=== PATIENT | male | born 1990 | race Hispanic/Latino ===

== ENCOUNTER 2018-02-15 19:19 | Inpatient (IN) | payer SELFPAY ==
[~2018-02-15 19:19] MED LIST: ISOVUE-370 76%-LOCM 1 ML ONE
[2018-02-15] MEDS ORDERED: Ondansetron ODT 4 MG TAB ONE (19:29)
[2018-02-15] MEDS ORDERED: Fentanyl 100 MCG/2 ML VIAL ONE (19:30)
[2018-02-15] MEDS ORDERED: Ondansetron HCl/PF 4 MG/2 ML Vial ONE (19:33)
[2018-02-15 19:47] LABS: #Basophils 0.1 thou/uL (0.0-0.2); #Monocytes 0.6 thou/uL (0.11-0.59); #Neutrophils 4.8 thou/uL (1.40-6.50); %Basophils 0.7 % (0.0-1.0); %Eosinophils 0.5 % (0.0-10.0); %Monocytes 8.4 % (0.0-10.0); %Neutrophils 64.4 % (42.0-75.0); Hemoglobin 14.7 g/dL (14.0-18.0); Mean Corpuscular HGB CONC 34.5 g/dL (32.0-36.0); Mean Platelet Volume 7.7 fL (7.4-10.4); Platelet Count 180 thou/uL (130-400); RBC Distribution Width 11.9 % (11.5-14.5); White Blood Cell (WBC) Count 7.5 thou/uL (4.8-10.8)
[2018-02-15 20:11] LABS: ALT (SGPT) 36 U/L (8-55); AST (SGOT) 32 U/L (5-34); Albumin 4.8 g/dL (3.5-5.0); Alcohol Less than 10 mg/dL (Less than 10); Alkaline Phosphatase 100 U/L (40-150); Anion Gap 13 mmol/L (10-20); BUN (Urea Nitrogen) 18 mg/dL (8.9-20.6); Bilirubin, Total 0.6 mg/dL (0.2-1.2); Calc. Creatinine Clearance 0 mL/min (70-130); Calcium 9.3 mg/dL (7.8-10.44); Carbon Dioxide 23 mmol/L (22-29); Chloride 105 mmol/L (98-107); Estimated GFR-MDRD 78; Globulin 3.4 g/dL (2.4-3.5); Glucose 114 mg/dL (70-105); Potassium 3.6 mmol/L (3.5-5.1); Protein, Total 8.2 g/dL (6.0-8.3); Sodium 137 mmol/L (136-145)
--- NOTE | 2018-02-15 20:29 | CT ---
CERVICAL SPINE CT WITHOUT CONTRAST: 02/15/18 COMPARISON: None. HISTORY: Fall, trauma, pain. TECHNIQUE: Serial axial CT imaging at 2.5 mm intervals from skull base through lung apices without contrast. Co liya and sagittal reformatted imaging obtained. FINDINGS: The occipital condyles, dens, C1-2 articulation, craniocervical junction and cervicothoracic junctio n appear intact. Cervical vertebral body height and alignment is maintained. No prevertebral soft tissue swelling. Imaged lung apices are unremarkable. No displaced fracture or evidence of dislocation is seen involvi ng the cervical spine. IMPRESSION: No cervical spine fracture or dislocation. Results called to Dr. Hull, 7:55 p.m., 02/15/18. Code CR POS: [email or web address]
--- NOTE | 2018-02-15 20:53 | CT ---
CT OF THE HEAD WITHOUT CONTRAST: 02/15/18 COMPARISON: None. HISTORY: Fall from a house. TECHNIQUE: Serial axial CT imaging at 5 mm intervals from vertex through skull base without contrast. FINDINGS: There is prominent periorbital soft tissue swelling on the right. There is a comminuted mildly displa alexa fracture involving the posterior wall of the right maxillary sinus. There is a comminuted and dis placed fracture of the right zygomatic arch. There is an obliquely oriented fracture involving the la teral orbital wall on the right. There is gas within the superior aspect of the orbit on the right. There is a probable right orbital floor fracture. There is no intracranial hemorrhage, midline shift, or mass effect seen. IMPRESSION: Extensive right sided facial fractures, incompletely assessed. Recommend CT examination of the facial bones. Results called to Dr. Hull at approximately 7:55 p.m., 02/15/18. Code CR POS: [facility]
[2018-02-15] MEDS ORDERED: Lidocaine 1% (PF) 30 ML VIAL ONE (20:54)
--- NOTE | 2018-02-15 21:27 | RAD ---
TWO VIEWS OF THE RIGHT WRIST: 02/15/18 COMPARISON: None. HISTORY: Fall, trauma, pain. FINDINGS: There is an obliquely oriented fracture through the mid body of the scaphoid bone. There is a comminu heidi distal right radial fracture with prominent dorsal and proximal displacement. The ulnar styloid is not visualized on the frontal film suggesting either old fracture or displaced acute fracture. IMPRESSION: Comminuted displaced distal right radial fracture with prominent dorsal and proximal displacement and marked comminution. There is an associated obliquely oriented fracture through the mid body of the r ight scaphoid. POS: [id number]
--- NOTE | 2018-02-15 21:45 | CT ---
CT FACIAL BONES 02/15/18 COMPARISON: None. HISTORY: Fall, trauma, pain. TECHNIQUE: Serial axial CT imaging is obtained at 2.5 mm intervals through the facial bones without contrast. Co liya and sagittal reformatted imaging obtained. FINDINGS: There is prominent soft tissue swelling in the right periorbital region. The frontal sinuses appear well aerated. The sphenoid sinuses and ethmoid air cells are well aerated as well. The left maxillary sinus is well aerated. There is partial opacification of the maxillary sinus on the right, including hemorrhage within the r ight maxillary sinus. There is a comminuted and posteriorly displaced fracture involving the anterior wall of the maxillary sinus on the right. There is a comminuted and displaced fracture involving the posterior wall and inferior aspect of the right maxillary sinus as well. There is a comminuted and d isplaced fracture of the right zygomatic arch and there is an obliquely oriented comminuted fracture involving the lateral aspect of the orbital wall on the right. There is a nondisplaced fracture involving the orbital floor on the right. The medial orbital wall on the right appears intact. The orbital floor and medial orbital wall on the left appears intact as does the left zygomatic arch . The pterygoid plates are intact bilaterally. Neither temporomandibular joint is dislocated. No evidence for a mandibular fracture is seen. Foci of gas are noted within the superior and lateral aspect of the orbit on the right anteriorly which may be associated with the fracture of the maxillary sinus on the right and/or could be related to associ ated laceration. IMPRESSION: Fractures of the right orbital floor, zygomatic arch, lateral orbital wall, anterior wall maxillary s inus and posterior wall maxillary sinus. There is associated soft tissue swelling with subcutaneous/p eriorbital gas as above. Results called to Dr. Hull at 7:59 p.m, 02/15/18. Code CR POS: [id number]
--- NOTE | 2018-02-15 21:52 | CT ---
CT OF THE CHEST CT OF THE ABDOMEN CT OF THE PELVIS CT OF THE THORACIC SPINE CT OF THE LUMBAR SPINE 02/15/18 COMPARISON: None. HISTORY: Fall, trauma, pain. TECHNIQUE: Serial axial CT imaging at 5 mm intervals from the thoracic inlet through the pubic symphysis with IV contrast. Coronal and sagittal reformatted imaging obtained. FINDINGS: The axillary, mediastinal, and hilar regions demonstrate no lymphadenopathy. There is no pleural, per icardial or mediastinal fluid. The vascular structures of the chest appear patent. There is no pneumo thorax seen on either side. Lung parenchyma demonstrates no acute findings. No endobronchial lesion is evident. The extraspinal osseous structures of the chest demonstrate no acute findings. There is no free intraperitoneal air or fluid seen. The liver, spleen, gallbladder, adrenal glands, kidneys and pancreas appear unremarkable. There is no evidence for bowel inflammatory change or obstruction. Vascular structures of abdomen/pel vis appear patent. No lymphadenopathy is seen in the abdomen or pelvis. The extraspinal osseous structures of the abdomen/pelvis demonstrate a subacute/chronic fracture invo lving the anterior aspect of the acetabulum on the right and the right inferior pubic ramus. There is no widening of the pubic symphysis or the sacroiliac joints. Neither hip appears dislocated. THORACIC SPINE: No fracture or dislocation. Thoracic vertebral body height and alignment appears normal. LUMBAR SPINE: No acute fracture or evidence of dislocation. Vertebral body height and alignment appears within norm al limits. IMPRESSION: No acute findings. Please see above discussion. Results called to Dr. Hull at 8:05 p.m., 02/15/18. Code CR POS: [facility]
[2018-02-15] MEDS ORDERED: Ondansetron ODT 4 MG TAB SL PRN (23:11)
[2018-02-15] MEDS ORDERED: Sodium Chloride 0.9% 1,000 ML IV SCH (23:11)
[2018-02-15] MEDS ORDERED: Ondansetron HCl/PF 4 MG/2 ML Vial IVP PRN ×2 (23:11→23:16)
[2018-02-15] MEDS ORDERED: hydrALAZINE 20 MG/ML VIAL SLOW IVP PRN (23:16)
[2018-02-15] MEDS ORDERED: Dextrose 5% in Water 1,000 ML IV PRN (23:16)
[2018-02-15] MEDS ORDERED: Dextrose 50% Abboject 50 ML SYRINGE SLOW IVP PRN (23:16)
[2018-02-15] MEDS ORDERED: Ondansetron ODT 4 MG TAB PO PRN (23:16)
[2018-02-15] MEDS: Acetaminophen 1,000 MG in Premix Bag 1 BAG IVPB SCH (23:44)
[2018-02-15] MEDS: Ketorolac Tromethamine 30 MG/ML VIAL IVP SCH (23:44)
[2018-02-15] MEDS: Sodium Chloride 0.9% 1,000 ML IV SCH (23:44)
[2018-02-16 00:16] VITALS: BMI 25.3
--- NOTE | 2018-02-16 03:12 | CON ---
DATE OF CONSULTATION: 02/15/2018 CHIEF COMPLAINT: Wrist pain. HISTORY OF PRESENT ILLNESS: Mr. Boykin is a 27-year-old male, who was working today. He works in a construction site. He fell from a ladder up high in the air. He landed hard on his right outstret ched arm and he struck his face. He has been found to have facial fractures as well as a displaced r adius and scaphoid fracture of the right wrist. He has been given pain medication. He has had a tra diana workup and imaging studies. Orthopedics was consulted regarding his right wrist. He is currentl y resting comfortably in an air splint. The patient is interviewed through a creative services specialist. PAST MEDICAL HISTORY: He denies active medical problems. PAST SURGICAL HISTORY: No previous surgeries. ALLERGIES: No known drug allergies. FAMILY MEDICAL HISTORY: Noncontributory. REVIEW OF SYSTEMS: Positive for right wrist and hand pain as well as facial trauma and pain. Negati ve otherwise 10-point review of systems. FAMILY MEDICAL HISTORY: Noncontributory. IMAGES: X-rays of the right wrist demonstrate a completely displaced distal radius fracture. There is comminution. The patient also has a transverse scaphoid fracture. PHYSICAL EXAMINATION: VITAL SIGNS: Stable. He is afebrile. GENERAL: He is alert, sitting upright, in no apparent distress. HEENT: Obvious facial trauma with swollen and ecchymotic eyes and forehead. There is laceration ove r the forehead. NECK: Cervical collar is in place. RESPIRATORY: Breathing comfortably. ABDOMEN: Soft, nontender, nondistended. CARDIOVASCULAR: Pulses palpable and regular. MUSCULOSKELETAL: The patient's right wrist has obvious extension deformity at the distal radius. Th ere is swelling and ecchymosis. He is able to gently flex and extend the fingers. Two second capill quinn refill. No open fracture or laceration. IMPRESSION: Right displaced distal radius fracture and scaphoid fracture. PLAN: Tonight, we will reduce the patient's wrist under hematoma block and sedation. He will be spl inted. He will be admitted to the hospital by the Trauma Service. He will need to go to the operati ng room tomorrow for open reduction and internal fixation of the radius and the scaphoid bone. We wi ll plan for this tomorrow to realign the radius into an anatomic position and provide compression of the scaphoid bone to allow healing. Risks have been reviewed with him. He wants to proceed. He sundeep l have adequate pain control and complete trauma workup. He will have DVT prophylaxis. Facial fract ures will be treated at a later time by the appropriate service.
[2018-02-16 05:11] LABS: #Lymphocytes 1.2 thou/uL (1.20-3.40); #Monocytes 0.8 thou/uL (0.11-0.59); #Neutrophils 5.8 thou/uL (1.40-6.50); %Basophils 0.1 % (0.0-1.0); %Eosinophils 0.1 % (0.0-10.0); %Lymphocytes 15.6 % (21.0-51.0); %Monocytes 10.3 % (0.0-10.0); %Neutrophils 73.9 % (42.0-75.0); Mean Corpuscular HGB CONC 34.8 g/dL (32.0-36.0); Mean Corpuscular Hemoglobin 30.5 pg (27.0-31.0); Mean Corpuscular Volume 87.6 fL (78.0-98.0); Mean Platelet Volume 7.8 fL (7.4-10.4); Platelet Count 153 thou/uL (130-400); Red Blood Cell (RBC) Count 4.27 mill/uL (4.70-6.10); White Blood Cell (WBC) Count 7.8 thou/uL (4.8-10.8)
--- NOTE | 2018-02-16 05:14 | HP ---
DATE OF ADMISSION: 02/15/2018 REQUESTING SURGEON: Dr. Mukul Hull. ATTENDING SURGEON: Dr. Tanner. CONSULTATIONS: Orthopedics, Dr. Bolaños. 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 He was brought to the emergency room by ground EMS. He underwent evaluation and examination and was noted to have right-sided facial fractures, facial contusion, and a displaced right distal radius and ulnar fracture and right scaphoid fracture. At which time, we were asked to evaluate the patient and obtain Orthopedic consultation. The patient reportedly did have a brief pe riod of loss of consciousness. 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 ALLERGIES: None. CURRENT MEDICATIONS: None. PAST MEDICAL HISTORY: None. PAST SURGICAL HISTORY: None. SOCIAL HISTORY: Patient denies drug, tobacco, or alcohol use and is employed as a [employer]. He is and lives with his family. FAMILY MEDICAL HISTORY: Diabetes. REVIEW OF SYSTEMS: Ten-point review of systems is negative, unless otherwise stated. PHYSICAL EXAMINATION: VITAL SIGNS: Blood pressure 137/83, heart rate 89, respirations 20, oxygen saturation 94% on room ai r, temperature is 98.5. GENERAL: Patient is resting comfortably in bed. He is alert and oriented x3. Vibha coma scale is 14. He is -1 for eye opening. HEENT: Head is normocephalic, atraumatic. Face, right periorbital ecchymosis and swelling. Eyes ar e extraocular motion intact. PERRLA bilaterally. Ears are atraumatic without discharge. Nose are a traumatic without discharge. Oropharynx is clear. NECK: Nontender. Trachea is midline. No JVD. CHEST: Clear to auscultation with good inspiratory and expiratory effort. HEART: Regular rate and rhythm. ABDOMEN: Soft, flat, nontender with active bowel sounds. Pelvis is stable. Bilateral lower extremi ties are neurovascularly intact. Left upper extremity is neurovascularly intact. Right upper extrem ity shows a significant silver-fork deformity, but is neurovascularly intact. BACK: Atraumatic and nontender. LABORATORY RESULTS: White blood cell count 7.5, hemoglobin 14.7, hematocrit 42.7, platelets 180,000. Sodium 137, potassium 3.6, chloride 105, CO2 of 23, BUN 18, creatinine 1.11, glucose 114. LFTs are unremarkable. Blood alcohol is less than 10. RADIOGRAPHIC REPORTS: CT of the brain without contrast shows no intracranial hemorrhage or calvarial fractures. The brain CT does show extensive right-sided facial fractures that are incompletely asse ssed on this exam. CT of the face without contrast shows fractures of the right orbital floor, zygom atic arch, lateral orbital wall, anterior wall of the maxillary sinus, and posterior wall of the maxi llary sinus with associated soft tissue swelling and subcutaneous/periorbital gas. CT of the C-spine without contrast shows no cervical spine fracture or dislocation. CT of the chest, abdomen, and pel vis without contrast shows no acute findings. Two views of the right wrist showed comminuted displac ed distal radius fracture with prominent dorsal and proximal displacement and marked comminution. Th ere is also associated obliquely oriented fracture through the mid body of the right scaphoid. ASSESSMENT AND PLAN: 1. Status post fall from roof. 2. Concussion. 3. Right-sided facial fractures. 4. Right distal radius and scaphoid fracture. 5. Contusions. Plan will be to admit the patient to the surgical floor. He will be made n.p.o. after midnight. Dr. Bolaños evaluated the patient in the emergency department and was able to do a closed reduction at bedside. The patient was also placed in a sugar-tong splint. After discussion with Dr. Miller of [facility], the patient will be seen as an outpatient in 1 week. He recommends sinus precautions, specifica lly no blowing his nose and be placed on amoxicillin for 5 days. Patient will have pain control, pul monary toilet, gastritis, and mechanical DVT prophylaxis. The evaluation, examination, laboratory an d radiographic findings were discussed with Dr. Tanner after this dictation.
[2018-02-16 05:37] LABS: Anion Gap 9 mmol/L (10-20); BUN (Urea Nitrogen) 17 mg/dL (8.9-20.6); Calc. Creatinine Clearance 132 mL/min (70-130); Calcium 8.7 mg/dL (7.8-10.44); Carbon Dioxide 26 mmol/L (22-29); Chloride 106 mmol/L (98-107); Estimated GFR-MDRD Greater than 90; Glucose 104 mg/dL (70-105); Potassium 3.8 mmol/L (3.5-5.1); Sodium 137 mmol/L (136-145)
[2018-02-16] MEDS: Acetaminophen 1,000 MG in Premix Bag 1 BAG IVPB SCH ×2 (06:36→15:03)
[2018-02-16] MEDS: Sodium Chloride 0.9% 1,000 ML IV SCH ×2 (06:37→17:27)
[2018-02-16] MEDS: Ketorolac Tromethamine 30 MG/ML VIAL IVP SCH ×2 (06:37→15:04)
--- NOTE | 2018-02-16 09:00 | RAD ---
2 VIEWS RIGHT WRIST: Date: 02/15/18 COMPARISON: 02/15/18. HISTORY: Reduction of distal radius fracture. FINDINGS/IMPRESSION: Two views of the right wrist show an overlying splint, which obscures fine bony and soft tissue detai l. There is a comminuted fracture of the distal radial metaphysis with an associated ulnar styloid fr acture. The previously seen fracture of the scaphoid is not appreciated on these limited views. IMPRESSION: 1. Reduction of distal radius fracture. 2. Nonvisualization of the previously seen scaphoid fracture. POS: [facility]
[2018-02-16] MEDS ORDERED: Fentanyl 100 MCG/2 ML VIAL ONE ×2 (10:08→11:05)
[2018-02-16] MEDS ORDERED: Midazolam HCl 2 mg/2 ml Vial ONE ×2 (10:08→11:05)
[2018-02-16] MEDS ORDERED: CEFAZOLIN/Water 2 GM/20 ML SYRINGE ONE (11:00)
[2018-02-16] MEDS ORDERED: Dexamethasone 4 mg/ml Vial ONE (11:06)
[2018-02-16] MEDS ORDERED: CEFAZOLIN/Water 2 GM/20 ML SYRINGE SLOW IVP SCH (12:00)
[2018-02-16] MEDS ORDERED: Morphine Sulfate 2 MG/ML SYRINGE SLOW IVP PRN (12:49)
[2018-02-16] MEDS ORDERED: Promethazine HCl 25 MG/ML VIAL SLOW IVP PRN (12:49)
[2018-02-16] MEDS ORDERED: Meperidine HCl/PF 25 MG/ML VIAL SLOW IVP PRN (12:49)
[2018-02-16] MEDS ORDERED: Bupivacaine HCl 0.5%/Epinephrine 1:200,000/PF 30 ml Vial ONE (13:24)
[2018-02-16] MEDS ORDERED: Ondansetron HCl/PF 4 MG/2 ML Vial ONE (14:31)
[2018-02-16] MEDS ORDERED: Dexamethasone 20 MG/5 ML VIAL ONE (14:31)
[2018-02-16] MEDS ORDERED: PHENYLEPHRINE-NS 100 MCG/ML 10 ML SYRINGE ONE (14:31)
[2018-02-16] MEDS ORDERED: Lidocaine 1% PF 5 ML VIAL ONE (14:31)
[2018-02-16] MEDS ORDERED: ePHEDrine/0.9% NaCl/PF SYRINGE 50 mg/10 ml ONE (14:31)
[2018-02-16] MEDS ORDERED: PROPOFOL 200 MG/20 ML VIAL ONE (14:31)
[2018-02-16] MEDS: AMOXicillin 250 MG CAP PO SCH ×3 (14:59→20:36)
[2018-02-16] MEDS: Famotidine 20 MG TAB PO SCH ×2 (14:59→20:35)
[2018-02-16] MEDS: CEFAZOLIN/Water 2 GM/20 ML SYRINGE SLOW IVP SCH ×2 (15:03→22:07)
--- NOTE | 2018-02-16 15:41 | RAD ---
RIGHT WRIST TWO VIEWS: History: Intraoperative films. FINDINGS: These show open reduction internal fixation of a distal radial fracture with plate and screws. In add ition a screw has been placed through the scaphoid. Bony alignment appears satisfactory. IMPRESSION: Post-operative changes of the wrist. POS: [facility]
[2018-02-16] MEDS ORDERED: traMADol HCl 50 MG TAB PO PRN (19:05)
[2018-02-16] MEDS ORDERED: Acetaminophen 500 MG TAB PO SCH (19:15)
[2018-02-16] MEDS: Acetaminophen 325 MG TAB PO SCH (20:35)
[2018-02-16] MEDS: traMADol HCl 50 MG TAB PO SCH (20:35)
[2018-02-16] MEDS: Ibuprofen 800 MG TAB PO SCH (20:35)
[2018-02-16] MEDS ORDERED: Ketorolac Tromethamine 30 MG/ML VIAL IVP SCH (21:00)
[2018-02-16] MEDS ORDERED: Acetaminophen 1,000 MG in Premix Bag 1 BAG IVPB SCH (21:00)
--- NOTE | 2018-02-17 00:59 | OP ---
DATE OF OPERATION: 02/16/2018 OPERATIONS: 1. Open reduction and internal fixation of right distal radius fracture. 2. Open reduction and internal fixation of right scaphoid fracture. PREOPERATIVE DIAGNOSES: Right displaced distal radius fracture and right scaphoid fracture. POSTOPERATIVE DIAGNOSIS: Right displaced distal radius fracture and right scaphoid fracture. COMPLICATIONS: None. ESTIMATED BLOOD LOSS: Minimal. IMPLANTS: Synthes distal radius plate, variable angle locking and a headless Synthes screw was used. INDICATIONS: Robert is a 27-year-old male who fell from a ladder. He fractured the right distal radiu s and scaphoid. He also had facial fractures. He was indicated for the above procedure to restore a natomic alignment and promote healing. Risks have been reviewed in detail. He has elected to procee d with the operation. DESCRIPTION OF PROCEDURE: Mr. Boykin was identified in the preoperative holding area. His correct extremity was marked. He was carried to the operating room. He was positioned supine. General ane sthesia was induced. A multidisciplinary timeout was performed. The right upper extremity was prepp ed and draped in sterile fashion. We began the procedure with distal radius fixation. We made a volar approach to the distal radius th rough the FCR interval. We dissected down to the pronator quadratus, which was elevated. At this po int, we encountered the significantly displaced distal radius fracture. We cleared the bony edges. At this point, the fracture was reduced back into an anatomic position. We held this with a reductio n clamp. We then applied a Synthes foot variable angle volar locking plate. Multiple screws were pl aced proximally and distally locking the plate to the bone. We achieved very rigid fixation. We too k x-ray images confirming all hardware placement and reduction. At this point, after thorough irriga tion, we closed the wound with 0 Vicryl suture, 2-0 Vicryl suture and nylon for the skin. At this point, we moved to the scaphoid. We made a small incision on the dorsal aspect of the wrist just proximal to the scaphoid bone. We dissected down to the subcutaneous tissue to the EPL tendon, the sheath was opened. We then incised the floor of the sheath. This brought us down onto the proxi mal pole of the scaphoid. We used intraoperative x-ray to confirm this. We then inserted a guide wi re from the proximal aspect across the fracture to the distal aspect of the scaphoid. We measured ap propriate length. At this point, we then proceeded to overdrill the guide wire. We then placed our compression headless screw. After achieving compression, we buried the screw appropriately. Again, we took images. At this point, we thoroughly irrigated with copious lavage. The deep tissues were c losed followed by skin. A sterile dressing and a splint was placed. The patient was taken to the re covery room in good condition without complication.
[2018-02-17] MEDS: Acetaminophen 325 MG TAB PO SCH ×2 (01:44→08:32)
[2018-02-17] MEDS: traMADol HCl 50 MG TAB PO SCH ×2 (01:44→06:41)
[2018-02-17] MEDS: Ibuprofen 800 MG TAB PO SCH ×2 (03:57→12:18)
[2018-02-17] MEDS: AMOXicillin 250 MG CAP PO SCH (08:32)
[2018-02-17] MEDS: Famotidine 20 MG TAB PO SCH (08:33)
[2018-02-17 12:12] VITALS: BP 123/74; TEMP 98.2
== END 2018-02-17 12:45 | disposition home or self-care (01) | DRG 511 ==
LOC: EDBD 19:19 → ERS 19:19 → SURG B 21:59
PROVIDERS: ADMIT Surgery; ATTEND Surgery
PROC: 0PSH04Z Reposition Right Radius with Internal Fixation Device, Open Approach (ICD-10-PCS; principal; 2018-02-16)
PROC: 0PSM04Z Reposition Right Carpal with Internal Fixation Device, Open Approach (ICD-10-PCS; 2018-02-16)
DX: S52.501A Unspecified fracture of the lower end of right radius, initial encounter for closed fracture (principal); S02.92XA Unspecified fracture of facial bones, initial encounter for closed fracture; S62.001A Unspecified fracture of navicular [scaphoid] bone of right wrist, initial encounter for closed fracture; W13.2XXA Fall from, out of or through roof, initial encounter
CPT/HCPCS: 36415; 70450; 70486; 71260; 72125; 74177; 76001; 80048; 80053; 80307; 85025; 86850; 86900; 86901; 96374; 96375; A4216; C1713; G0390; J0131; J0670; J1100; J1885; J2001; J2250; J2270; J2405; J2704; J3010; Q0162

== ENCOUNTER 2018-11-23 23:42 | Emergency (ER) | payer OTHER, SELFPAY ==
[2018-11-24] MEDS ORDERED: predniSONE 20 MG TAB ONE (00:30)
== END 2018-11-24 00:35 | disposition home or self-care (01) ==
LOC: ERS 23:42
DX: J20.9 Acute bronchitis, unspecified (principal)
CPT/HCPCS: 94640; J7512; J7620